=== PATIENT | male | born 1975 | race African-American/Black ===

== ENCOUNTER 2017-10-21 03:39 | Emergency (ER) | payer OTHER ==
[~2017-10-21] VITALS: Ht 180.3 cm; Wt 95.3 kg
[~2017-10-21 03:39] MED LIST: NOHOMEMEDICATIONS; NORCO 5-325 TA1 EACH PO
[2017-10-21 03:40] VITALS: BP 175/116
[2017-10-21] MEDS ORDERED: NORCO 5-325 TA1 EACH PO (04:24)
== END 2017-10-21 04:35 | disposition home or self-care (01) ==
LOC: ER 03:39
DX: M25.512 Pain in left shoulder (principal); F17.210 Nicotine dependence, cigarettes, uncomplicated